=== PATIENT | female | born 1960 | race Caucasian/White ===

== ENCOUNTER 2018-04-10 18:37 | Emergency (ER) | payer BC ==
[~2018-04-10] VITALS: Ht 157.5 cm; Wt 61.3 kg
[2018-04-10 18:49] VITALS: BP 126/74
== END 2018-04-10 19:37 | disposition home or self-care (01) ==
LOC: ER 18:46
DX: S61.012D Laceration without foreign body of left thumb without damage to nail, subsequent encounter (principal); Z98.890 Other specified postprocedural states; Z88.0 Allergy status to penicillin; Z88.2 Allergy status to sulfonamides; W26.0XXD Contact with knife, subsequent encounter
CPT/HCPCS: 99283